=== PATIENT | female | born 1960 | race Caucasian/White ===

== ENCOUNTER 2019-04-13 06:25 | Inpatient (IN) | payer MEDICARE, MEDICAID ==
[~2019-04-13] VITALS: Ht 160 cm; Wt 63.5 kg
--- NOTE | ~2019-04-13 | WRIGHTHP ---
[place], [place] PATIENT HISTORY AND PHYSICAL EXAM NAME: CAN HERNANDEZ UNIT #: [id number] ROOM: 312 DOCTOR: SHARAN ARROYO MD BIRTHDATE: [birth year] DOS: 04/14/2019 INITIAL PSYCHIATRIC EVALUATION CHIEF COMPLAINT: "I have just been so depressed and having panic attacks." HISTORY OF PRESENT ILLNESS: This is a 58-year-old female who resides at [facility] in [place], [place]. The patient reports that she had gone to jainism on the morning of admission and stated that a man kept looking at her, making her very uncomfortable having then experienced a panic attack from it. The panic attack was the thing that sat her over the edge and she stated that prior to this, she had been feeling increasingly depressed and despondent for many, many years. She reports multiple neurovegetative symptoms including poor sleep and appetite, anergia, anhedonia, hopeless, helpless feelings, crying spells, and inability to cope. Additionally, the patient suffers from multiple sclerosis and states that she has had a significant cognitive decline since the diagnosis was made. She is very forgetful and requires a great deal of assistance and support. She is admitted now to rule out any organic factors to attempt to stabilize on medication, to engage in individual and high milieu activity and to return to the least restrictive environment to which she can go to. PAST MEDICAL HISTORY: Remarkable for previous history of alcohol abuse, GERD, marijuana abuse, hypertension, multiple sclerosis, and overactive bladder. SOCIAL HISTORY: The patient does not currently smoke nor does she use illicit drugs currently, nor does she drink alcohol, but she has a history of both marijuana abuse and alcohol abuse. STRENGTHS: Ambulatory, good verbal skills. WEAKNESSES: Cognitive decline, poor coping skills. MENTAL STATUS: She is alert and oriented to person, place, but not time. Mood does seem to be overwhelmingly depressed and despondent with anxious overtones. She endorses multiple neurovegetative symptoms as well as suicidal thoughts and a plan. There is no hypomania or nilton. There are no gross psychotic symptoms. No auditory or visual hallucinations. No delusions. Memory, especially for short-term events is poor. DIAGNOSES: Major depression, recurrent, severe, and panic disorder as well as dementia secondary to multiple sclerosis. PLAN: I will discontinue her Abilify as I do not see psychosis and while she may benefit in the future from Abilify, augmenting an antidepressant. I would rather start an antidepressant alone first to see if this is effective. Along those lines, I will start Trintellix 10 mg a day. Given her cognitive decline, I will also start her on Exelon patch 4.6 mg a day. Monitor and support, engage in individual and high milieu activity, returning to the least restrictive environment when psychiatrically stable. [place], [place] PATIENT HISTORY AND PHYSICAL EXAM NAME: CAN HERNANDEZ UNIT #: [id number] ROOM: 312 DOCTOR: SHARAN ARROYO MD BIRTHDATE: [birth year] SHARAN ARROYO MD CM:HISPHYS:PATIENT HISTORY AND PHYSICAL EXAMINATION 1 1 SHARAN ARROYO MD 04/14/19 09 interface
--- NOTE | ~2019-04-13 | PR ---
[place], [place] PROGRESS NOTE NAME: CAN HERNANDEZ UNIT #: [id number] ROOM: 312 DOCTOR: SHARAN ARROYO MD BIRTHDATE: [birth year] DOS: 04/16/2019 CHIEF COMPLAINT: "I am kind of itchy all around my collar." SUMMARY OF THE VISIT: The patient was interviewed as she was resting quietly in bed. She did report that she is feeling better mood islas and that she feels like the current medicines are working. She expressed concern though that they may be causing her to be itching. However, on further explanation, the itchiness is not fully systemic, but isolated to her head and to her neck area. I offered her a shot of Benadryl to which she agreed. MENTAL STATUS: She is alert and oriented. Mood does seem to be strongly trending towards euthymia. Affect is much more appropriate. There is no nilton, hypomania or psychosis. Memory does continue to have gaps. PLAN: I will order Benadryl 50 mg IM now to see if this impacts positively on her itching. I did tell her that if she should break out into hives to please notify the nursing staff immediately. I will also simultaneously increase the Trintellix from 10 mg daily to 20 mg daily to maximize potential benefits. Continue to engage in individual and high milieu activity, returning to the least restrictive environment when psychiatrically stable. SHARAN ARROYO MD CM:PNTRANS [id number] SHARAN ARROYO MD 04/16/19 1524 interface
--- NOTE | ~2019-04-13 | PR ---
[place], [place] PROGRESS NOTE NAME: CAN HERNANDEZ UNIT #: [id number] ROOM: 312 DOCTOR: SHARAN ARROYO MD BIRTHDATE: [birth year] DOS: 04/15/2019 INTERVAL NOTE CHIEF COMPLAINT: "I am hoping I get to go home soon." SUMMARY OF THE VISIT: The patient was interviewed as she was sitting in the quiet room. She stopped and engaged readily in conversation with me reporting that she is already beginning to feel better. She reported that she has not had a panic attack since she has been here in the hospital and her sleep and appetite have both normalized. She also reports that her mood is brighter and she is feeling better. She still notes that she is very forgetful and states that the cognitive decline has been progressive and she is very concerned about this. She also openly reports no side effects from the medicines themselves. MENTAL STATUS: She is alert and oriented to person, place and very approximate to time. Mood does seem to be strongly trending towards euthymia. Affect is much more appropriate. There is no hypomania or nilton. There are no gross psychotic symptoms. Short term memory does continue to have gaps, but long and intermediate are intact. PLAN: I will go ahead and increase the Exelon patch from 4.6 mg daily to 9.5 mg daily in an effort to maximize potential benefits in improving and maintaining ADLs, behavior and cognition. We will continue her other psychotropic regimen, continue to engage in individual and high milieu activity with the ultimate plan to return to the least restrictive environment when psychiatrically stable. SHARAN ARROYO MD CM:PNTRANS [id number] SHARAN ARROYO MD 04/15/19 1319 interface
--- NOTE | ~2019-04-13 | DS ---
[place], [place] DISCHARGE SUMMARY [facility]: [id number] UNIT #: [id number] ROOM: 312 DOCTOR: SHARAN ARROYO MD BIRTHDATE: [birth year] DOS: 04/18/2019 CHIEF COMPLAINT: "I have just been so depressed and I am having panic attacks." HISTORY OF PRESENT ILLNESS: This is a 58-year-old female who resides at [facility] in [place], [place]. The patient reports she had gone to methodist in the morning of the day of admission and stated that a man kept looking at her making her very uncomfortable, at which time she began a full blown panic attack. The panic attacks sent her over the edge stating that she cannot continue living like this and she was deeply depressed and had suicidal thoughts with a plan to end her life. She also endorses multiple neurovegetative symptoms including poor sleep and appetite, anergia, anhedonia, hopeless, helpless feelings and inability to cope. The patient suffers from multiple sclerosis and has noted also significant cognitive decline and does require supervision in order to take her medications and eat her meals. Because of the decompensation, it was felt that an inpatient stabilization was warranted. SUMMARY OF HOSPITAL COURSE: The patient was admitted to the unit where she was started on Trintellix as a newer antidepressant that would impact positively on cognition as well as decrease anxiety and combat depression. Trintellix was started at 10 mg a day. Her Abilify was discontinued as I was hoping to do monotherapy first, she started on Exelon patch 4.6 mg a day to help improve or maintain ADLs, behavior and cognition. Over the course of her stay, the Exelon was titrated upwards to its maximum dose of 13.3 mg a day with good results. With the Trintellix being increased to 20 mg a day, the patient had a significant alleviation of symptomatology. Sleep and appetite normalized. She was able to attend her ADLs better. Her mood improved. Her concentration improved. Her panic attacks dissipated. She voiced positive plans for the future and was ready to go back to [facility]. MENTAL STATUS AT DISCHARGE: The patient is alert and oriented to person, place and very approximate to time. Mood does seem to be euthymic. Affect appropriate. Speech rate and pattern is within normal limits. There is no nilton, hypomania or psychosis. She at times process slowly, but for the most part has improved. Memory for short term events does have gaps. FINAL DIAGNOSES: Major depression, recurrent, severe panic disorder, dementia secondary to multiple sclerosis. DISPOSITION: The patient is returning to [facility] in [place], [place]. At the time of discharge, she was medically and psychiatrically stable. All of her prescriptions have been printed, signed and will be sent with her and I will be her treating psychiatrist of record upon her readmission to [facility]. [place], [place] DISCHARGE SUMMARY NAME: CAN HERNANDEZ UNIT #: [id number] ROOM: 312 DOCTOR: SHARAN ARROYO MD BIRTHDATE: [birth year] SHARAN ARROYO MD CM:DANIKA 1 0 SHARAN ARROYO MD 04/18/19919 interface
--- NOTE | ~2019-04-13 | PR ---
[place], [place] PROGRESS NOTE NAME: CAN HERNANDEZ UNIT #: [id number] ROOM: 312 DOCTOR: SHARAN ARROYO MD BIRTHDATE: [birth year] DOS: 04/17/2019 CHIEF COMPLAINT: "Oh, thank you for taking care of me. I feel so much better." SUMMARY OF THE VISIT: The patient was interviewed as she was resting quietly in her bed. She thanked me for taking care of her and reports that she is feeling so much better. When I discussed with her the possibility of leaving tomorrow, she also thanked me for arranging for her ride and stated that she was ready for discharge. MENTAL STATUS: She is alert and oriented with time gaps. Mood does seem to be trending towards euthymia. Affect is much more appropriate. There is no nilton, hypomania or psychosis noted. Short -term memory has gaps. PLAN: I will go ahead and increase her Exelon patch to 13.3 mg daily starting on 04/18/2019. Continue to engage in individual and high milieu activity, returning then to the least restrictive environment when psychiatrically stable. SHARAN ARROYO MD CM:PNTRANS [id number] SHARAN ARROYO MD 04/17/19 1328 interface
[2019-04-13] MEDS ORDERED: BACLOFEN5 MG PO (06:31)
[2019-04-13] MEDS ORDERED: VESICARE5 MG PO (06:32)
[2019-04-13] MEDS ORDERED: COL-RITE100 M1 PO (06:33)
[2019-04-13] MEDS ORDERED: PROTONIX40 MG PO (06:35)
[2019-04-13] MEDS ORDERED: ABILIFY5 MG PO (06:36)
--- NOTE | 2019-04-13 11:20 | NUR ---
MARYCAN a 58 year old F admitted via stretcher from the ADMITTING as a emergency 72 hr. hold admission. Arrived on unit at 1120. ALLERGIES: NKA. Vital signs are: [id number] 116/77. The client signed the following forms with stated understanding: Authorization For The Release of Medical Information, Clothing List, Consent to Voluntary Admission and Hospitalization, Consent and Release Forms/Receipt of Rights, Acknowledgement of Advance Directive Information, Behavioral Health Consent Form, and Informed Consent of Medications. Admitted under the services of Dr. DINA OLMOS,[facility]. A search was conducted and hazardous articles were removed. Client was oriented to the unit. SHARONA GAMEZ
[2019-04-13 11:31] VITALS: BP 116/77
[2019-04-13 11:33] VITALS: BP 116/77
--- NOTE | 2019-04-13 12:45 | NUR ---
psychosocial hx completed this date.
--- NOTE | 2019-04-13 13:09 | NUR ---
PATIENT COMPLAINING OF LOWER BACK PAIN, RATING 8/10 PAIN. PRN TYLENOL 650MG PO GIVEN AT THIS TIME.
--- NOTE | 2019-04-13 14:09 | NUR ---
NO FURTHER COMPLAINTS OF PAIN, PRN TYLENOL EFFECTIVE.
--- NOTE | 2019-04-13 15:47 | NUR ---
Shift chart check completed.
--- NOTE | 2019-04-13 16:01 | NUR ---
DA DIAS CNP NOTIFIED OF SUICIDE SCORE OF 30; CONTINUE Q 15 MINUTE SAFETY CHECK. PATIENT HAS NO PLAN TO HARM SELF.
--- NOTE | 2019-04-13 17:26 | NUR ---
PT COMPLAINT OF BACK PAIN REQUESTED TYLENOL, ADMINISTERED AT THIS TIMES
--- NOTE | 2019-04-13 18:31 | NUR ---
P: DELUSIONAL THOUGHTS VOICED- 15 YEARS AGO I MET JENIFER DIAS AND MOVED TO [place], STAYED WITH JENIFER DIAS FOR 2 MONTHS; WHILE HE WAS FROM HIS . I WISH I WAS , I DON'T HAVE HIM IN MY LIFE ANYMORE. PATIENT DENIES HAVING SUCIDAL IDEATIONS TO HARM SELF. I: ONE ON ONE TO PROVIDE EMOTIONAL SUPPORT, REORIENT TO REALITY. R: ONE ON ONE EFFECTIVE; PATIENT IS ALERT TO PERSON AND TIME WITH CONFUSION; LONG/SHORT TERM MEMORY DEFICITS. MOOD IS DEPRESSED AND ANXIOUS. DENIES ANY HALLUCINATIONS, DELUSIONS, HI/SI. MEDICATION WITH TYLENOL FOR BACK PAIN AND EFFECTIVE. RESPONDING TO INTERNAL STIMULI-DELUSIONAL THOUGHTS VOICED. MEDICATION COMPLIANT WITH EDUCATION PROVIDED. Q 15 MINUTE SAFETY CHECKS MAINTAINED. 1 PERSON ASSIST NEEDED FOR ACTIVITIES OF DAILY LIVING, CONTINENT OF BOWEL AND BLADDER; OCCASIONAL INCONTINENCE OF BLADDER. INTERACTIVE WITH STAFF AND OTHER PATIENTS. AMBULATORY WITH STEADY GAIT USING WHEELED WALKER. CONTINUING TO MONITOR MEAL INTAKES. P: CONTINUE TO MONITOR FOR MOOD AND DELUSIONS; PROVIDE ONE ON ONE FOR EMOTIONAL SUPPORT AND REORIENTATION TO REALITY NEEDED.
[2019-04-13 20:25] VITALS: BP 116/63
--- NOTE | 2019-04-14 00:39 | NUR ---
P-DEPRESSED MOOD I- ASSESS ORIENTATION, MOOD, AND BEHAVIOR. ASSESS FOR SI/HI, HALLUCINATIONS, AND DELUSIONS. PROVIDE 1:1 WITH THERAPEUTIC INTERVENTIONS. PROVIDE SUPPORT. MONITOR SLEEP. R-PATIENT ALERT AND ORIENTED X2 WITH CONFUSION. PT CALM, ISOLATIVE TO SELF. AMBULATORY THROUGHOUT UNIT, GAIT STEADY. PT GUARDED DURING 1:1, STATED SHE FELT DEPRESSED BUT WOULD NOT ELABORATE STATING "ITS BEEN A LONG DAY". PT DENIES SI/HI AND HALLUCINATIONS, NO NOTED RESPONDING TO INTERNAL STIMULI. NO PARANOIA/DELUSIONS NOTED. PT ABLE TO MAKE NEEDS KNOWN, X1 ASSIST WITH ADLS, CONTINENT OF BOWEL AND BLADDER. PT RESTING QUIETLY AT THIS TIME. NO SIGNS OR SYMPTOMS OF DISTRESS NOTED. P-CONTINUE TO MONITOR MOODS AND BEHAVIORS. PROVIDE 1:1 WITH REORIENTATION NEEDED. PROVIDE SUPPORT. ENCOURAGE MEDICATION COMPLIANCE AND EDUCATE. MAINTAIN Q 15 MIN CHECKS.
--- NOTE | 2019-04-14 06:00 | NUR ---
PATIENT OBSERVED ON Q 15 MIN CHECKS TO HAVE SLEPT APPROX 7 HOURS THROUGHOUT THE SHIFT WITH NO AWAKENINGS OR SIGNS AND SYMPTOMS OF DISTRESS NOTED.
[2019-04-14 07:46] VITALS: BP 110/61
[2019-04-14 07:58] LABS: ALBUMIN 3.1 gm/dl (3.1-4.5); ALKALINE PHOSPHATASE 55 U/L (45-117); BUN 8 mg/dl (7-24); CHLORIDE 107 mmol/L (98-107); CHOLESTEROL 192 mg/dL (<200); CREATININE 0.64 mg/dL (0.55-1.02); HDL CHOLESTEROL 50 mg/dl (40-60); LDL CHOLESTEROL 119 mg/dL (9-159); POTASSIUM 4.1 mmol/L (3.5-5.1); SGOT/AST 10 IU/L (3-35); SGPT/ALT 16 U/L (12-78); SODIUM 142 mmol/L (136-145); TOTAL PROTEIN 6.6 gm/dL (6.4-8.2); TRIGLYCERIDES 117 mg/dl (<150); VLDL CHOLESTEROL 23 mg/dL (6-40)
--- NOTE | 2019-04-14 08:12 | NUR ---
Occupational therapy orders received and nursing screen. Will follow up with patient for completion of OT eval. Thank you. Odalis Lyles, OTR/L
--- NOTE | 2019-04-14 10:28 | NUR ---
Spoke with Van, district court administrator of [facility], who confirmed that pt is to return there. Requested that the guardianship papers for pt be faxed to [facility].
--- NOTE | 2019-04-14 10:30 | NUR ---
Treatment plan meeting held with Dr Jessica, RN, DAIRY FARM SUPERVISOR-S, and coordinator of placement. Discharge date undetermined at this time. Will return to [facility] upon discharge.
--- NOTE | 2019-04-14 11:13 | NUR ---
Clinical update faxed to [facility].
--- NOTE | 2019-04-14 11:44 | NUR ---
AM GROUP PT DID NOT ATTEND MORNING GROUP THEARPY UNTIL ONLY 10 MINUTES WERE LEFT. PT STATED, "I WAS IN BED CAUSE MY BACK IS HURTING ME" PT REQUESTED TO LISTEN TO COUNTRY MUSIC AND SAT QUIETLY AND LISTENED FOR THE REMAINDER OF GROUP. PT EXHIBITED NO SIGNS OF ANXIETY WHILE IN THE GROUP ROOM
--- NOTE | 2019-04-14 14:14 | NUR ---
PHYSICAL THERAPY Pt participating in activities. Will attempt later. Thank you Jenni Clinton, PT, DPT
--- NOTE | 2019-04-14 14:15 | NUR ---
Occupational therapy orders received and chart reviewed. Patient was in group upon OT arrival. Will follow up with patient for completion of OT evaluation. Thank you. Odalis Lyles, OTR/L
--- NOTE | 2019-04-14 15:47 | NUR ---
PM GROUP PT ATTENDED AND PARTICIPATED IN AFTERNOON GROUP THERAPY BY COLORING AND LISTENING TO MUSIC. PT WAS QUIET AND ON TASK. PT EXHIBITED NO SIGNS OF ANXIETY WHILE IN GROUP.
[2019-04-14 20:00] VITALS: BP 128/79
--- NOTE | 2019-04-14 20:32 | NUR ---
EVENING/RELAXTION/MUSIC/STORY PT ATTENDED AND PARTICIPATED IN GROUP BY GETTING NAILS DONE AND DOING A WORDSEARCH. PT PLEASANT AND ON TASK WITH NO ANXIETY, OR DELUSIONS EXPRESSED AT THIS TIME. PT WILL CONTINUE TO ATTEND AN DPARTICIPATE IN FUTURE GROUP SESSIONS.
--- NOTE | 2019-04-15 02:44 | NUR ---
APPEARS WITH SAD FACE BUT VERY INTERACTIVE WITH STAFF AND PEERS. WALKING AROUND WITH WALKER. DURING MED PASS SHE WAS TALKING QUIETLY AND WHEN ASKED WHO SHE WAS TALKING TO SHE DENIED TALKING TO OTHERS STATES SHE JUST TALKS TO HERSELF. DENIES ANY NEED FOR 1:1 AT THIS TIME
[2019-04-15 08:09] VITALS: BP 123/59
--- NOTE | 2019-04-15 10:16 | NUR ---
Left a voicemail message for pt's guardian Jeannie Baugh requesting that guardianship papers be faxed to [facility] and also that Jeannie contact [facility].
--- NOTE | 2019-04-15 11:44 | NUR ---
AM GROUP PT ATTENDED MORNING GROUP THERAPY AND PARTICIPATED BY DOING A WORDSEARCH AND LISTENING TO MUSIC. PT WAS NOTED TO BE TALKING UNDER HER BREATH AT TIMES. PT WAS QUIET AND ON TASK. PT EXPRESSED NO DELUSIONS OR ANXIOUS THOUGHTS WHILE IN GROUP.
--- NOTE | 2019-04-15 12:38 | NUR ---
NILE CA TYPEWRITER TESTER ON UNIT TO ASSESS PT, UPDATE PROVIDED.
--- NOTE | 2019-04-15 15:57 | NUR ---
PM GROUP PT WAS PRESENT FOR AFTERNOON GROUP THERAPY AND PARTICIPATED BY DOING A WORDSEARCH AND LISTENING TO MUSIC. PT EXPRESSED NO DELUSIONAL IDEATIONS WHILE IN GROUP
[2019-04-15 20:00] VITALS: BP 123/78
--- NOTE | 2019-04-15 23:36 | NUR ---
24 HR chart check completed.
[2019-04-16 07:50] VITALS: BP 120/80
--- NOTE | 2019-04-16 08:30 | NUR ---
Treatment Plan meeting with Dr. Jessica, RN, AT, SW and Supervisor Unloading. Plan for discharge /Sunday. Pt. will return to [facility] at discharge.
--- NOTE | 2019-04-16 10:57 | NUR ---
NO ADVERSE MOODS OR BEHAVIORS NOTED AT THIS TIME. PT ALERT TO PERSON, PLACE AND TIME. PT MED COMPLIANT WITHOUT DIFFICULTY, MED EDUCATION PROVIDED. PT CALM, MOOD IS STABLE. PT INTERACTIVE WITH STAFF AND PEERS. NO HALLUCINATIONS OR DELUSIONS NOTED. PT DENIES ANY SUICIDAL THOUGHTS. PT AMBULATORY THROUGHOUT UNIT, GAIT STEADY. PT CONTINENT OF BOWEL AND BLADDER, EPISODES OF INCONTINENCE NOTED, CARE PROVIDED NEEDED. PLAN IS TO MONITOR PT BEHAVIORS ON Q15 MIN SAFETY CHECKS, ENCOURAGE MED COMPLIANCE AND PROVIDE MED EDUCATION, PROVIDE EMOTIONAL SUPPORT AND 1:1 FOR PT TO VOICE FEELINGS.
--- NOTE | 2019-04-16 11:24 | NUR ---
Occupational therapy orders received and OT evaluation completed in full on floor three. Patient precautions include fall risk and ww use. Patient was independent with ADLs and functional mobility/transfers. Patient orders to be discharged at this time. Patient was notified of OT discharge, patient was agreeable and had no further questions. [place], [id number]. Thank you. Odalis Lyles, OTR/L
--- NOTE | 2019-04-16 11:54 | NUR ---
AM GROUP/MUSIC AND LIGHT THERAPY PT DID NOT ATTEND MORNING GROUP THERAPY. PT WAS IN BED RESTING
--- NOTE | 2019-04-16 15:41 | NUR ---
PM GROUP PT WAS PRESENT AT THE START OF AFTERNOON GROUP AND WORKED ON A WORDSEARCH FOR A FEW MINUTES. PT GOT UP AND LEFT THE DAYROOM AND DID NOT RETURN.
--- NOTE | 2019-04-16 16:23 | NUR ---
Shift chart check completed.
[2019-04-16 19:57] VITALS: BP 119/74
--- NOTE | 2019-04-16 21:25 | NUR ---
Patient alert and oriented x 3. Patient isolative to room. Patient ambulated in hallway with walker and steady gait befor going to her room. Patient denies any hallucinations. No signs of patient responding to internal stimuli. Patient compliant with medications without any difficulty. Provided 1:1 for emotional support. Plan to continue to encourage medication compliance and continue to provide emotional support. Also continue to encourage more interaction with staff and in groups. Q 15 minute safety checks continued and maintained. See [facility] flowsheet for further documentation.
--- NOTE | 2019-04-17 02:55 | NUR ---
24 HR chart check completed.
--- NOTE | 2019-04-17 05:05 | NUR ---
Patient slept approx. 8 hours throughout shift. Q 15 minute safety checks continued and maintained.
[2019-04-17 08:00] VITALS: BP 110/66
--- NOTE | 2019-04-17 09:00 | NUR ---
Discharge Plan remains unchanged at this time. Pt. will discharge Sunday with Return to [facility].
--- NOTE | 2019-04-17 09:55 | NUR ---
PHYSICAL THERAPY Physical therapy screen completed. Pt is independent using a FWW. Pt performs self care activities independently. no PT needs at this time. Thank you Jenni Clinton, PT, DPT
--- NOTE | 2019-04-17 11:40 | NUR ---
AM GROUP PT DID NOT ATTEND MORNING GROUP THERAPY. PT WAS IN BED RESTING
--- NOTE | 2019-04-17 13:20 | NUR ---
Shift chart check completed.
--- NOTE | 2019-04-17 13:21 | NUR ---
P- ISOLATIVE TO ROOM. ST/LT MEMORY DEFICITS NOTED. I- ASSESS MOOD, ORIENTATION, SI/HI, HALLUCINATIONS, DELUSIONS OR PAIN. PROVIDE MEDICATIONS ON TIME WITH EDUCATION ON EACH MED. 1:1 THERAPEUTIC INTERACTION WITH EMOTIONAL SUPPORT AND VENTILATION OF FEELINGS PROVIDED. REORIENT WHEN CONFUSION IS NOTED. ENCOURAGE TO ATTEND/PARTICIPATE IN GROUP THERAPY FOR EMOTIONAL SUPPORT AND SOCIALIZATION. ENCOURAGE INTERACTION WITH PEERS AND STAFF. R- ALERT AND ORIENTED X3. ST MEMORY DEFICITS NOTED AT TIMES, REORIENTATION EFFECTIVE. PT STATES THAT SHE HAS NOTICED A CHANGE IN HER MEMORY RECENTLY. MOOD PLEASANT. DENIES SI/HI, HALLUCINATIONS OR PAIN. NO S/S OF INTERACTING WITH INTERNAL STIMULI. NO DELUSIONAL THOUGHT PROCESS NOTED. NO S/S OF DISTRESS NOTED. RESPS EVEN AND UNLABORED ON ROOM AIR. 1:1 INTERACATION SLIGHTLY EFFECTIVE. PT COMES OUT OF ROOM INTERMITTENTLY THROUGHOUT THE DAY AND FOR MEALS. PT STATES THAT SHE JUST PREFERS TO STAY IN HER ROOM. PT INTERACTIVE WITH STAFF WHEN SPOKEN WITH FIRST. GAIT STEADY WHILE UTILIZING WALKER. MAKES NEEDS KNOWN. MEDICATION COMPLIANT. EATING AND DRINKING ADEQUATELY. P- ASSESS MOOD, ORIENTATION, SI/HI, HALLUCINATIONS, DELUSIONS OR PAIN EVERY SHIFT. PROVIDE MEDICATIONS ON TIME WITH EDUCATION ON EACH. 1:1 INTERACTION PROVIDED WHEN NECESSARY. ENCOURAGE TO ATTEND/PARTICIPATE IN GROUP THERAPIES FOR EMOTIONAL SUPPORT AND SOCIALIZATION. ENCOURAGE INTERACTION WITH PEERS AND STAFF. REORIENT WHEN CONFUSION IS NOTED. Q15 MINUTE CHECKS MAINTAINED FOR SAFETY.
--- NOTE | 2019-04-17 13:30 | NUR ---
Late Entry: [place] that pt's guardian had changed to Vianey Fields ([phone]). [facility] was to be faxing guardianship document. Phoned to speak to Vianey Fields and was informed that she is off of work due to surgery but that Eduardo Whelan was covering for Vianey. Spoke to Eduardo who gave verbal permission for voluntary admission of pt. Eduardo also notified Vianey Fields of pt's admission.
--- NOTE | 2019-04-17 14:45 | NUR ---
Spoke with pt's guardian Vianey Diamond. Provided update and discussed follow-up for patient. The plan is that [facility]. Vianey's contact info is: cell [phone], mailing address is [address] [place] [address], [place] [address].
--- NOTE | 2019-04-17 15:39 | NUR ---
PM GROUP PT DID NOT ATTEND AFTERNOON GROUP THERAPY. PT CHOSE TO STAY IN HER ROOM AND REST
--- NOTE | 2019-04-17 15:47 | NUR ---
Transportation arranged with [facility] to Transport with Electric Installer time 1:00 p.m. Nursing Staff on the U Notified and Left On Communication Board.
[2019-04-17 20:27] VITALS: BP 112/60
--- NOTE | 2019-04-17 22:00 | NUR ---
P-ISOLATIVE I-REDIRECTION WITH 1:1 THERAPEUTIC INTERVENTIONS. EDUCATE AND ENCOURAGE MEDICATION COMPLIANCE R-PATIENT MEDICATION COMPLIANT. PATIENT AMBULATING ON UNIT WITH WHEELED WALKER AND WITH STEADY GAIT. PATIENT GARBLED AND NONSENSICAL SPEECH AT TIMES. PATIENT COOPERATIVE WITH NURSING STAFF. NOURISMENT AND FLUIDS PROVIDED AT HS P-CONTINUE TO ENCOURAGE MEDICATION COMPLIANCE, ENCOURAGE GROUP THERAPY WHILE AWAKE
--- NOTE | 2019-04-18 05:48 | NUR ---
PATIENT SLEPT 8 HOURS OF UNINTERRUPTED SLEEP THROUGHOUT SHIFT. Q 15 MINUTE CHECKS MAINTAINED. 24 HR chart check completed.
[2019-04-18 08:00] VITALS: BP 126/74
--- NOTE | 2019-04-18 08:25 | NUR ---
NILE CA CONVENTIONAL UNDERWRITER NOTIFIED OF DISCHARGE TODAY.
--- NOTE | 2019-04-18 08:30 | NUR ---
Patient resting quietly with no c/o discomfort. Respirations easy and regular. Vital signs stable. No overt distress. TEODORA SOTO
--- NOTE | 2019-04-18 08:30 | NUR ---
Treatment Plan meeting with Dr. Jessica, RN, AT, SW and Oyster Bed Worker. Plan for discharge today. Pt. will return to [facility].
[2019-04-18] MEDS ORDERED: BRIN20TA PO (09:06)
[2019-04-18] MEDS ORDERED: EXELON13.3 MG/21 T (09:06)
--- NOTE | 2019-04-18 11:41 | NUR ---
[facility] GROUP PT DID NOT ATTEND MORNING GROUP THERAPY. PT IS READYING TO BE DISCHARGED FROMT HE UNIT TODAY
--- NOTE | 2019-04-18 12:28 | NUR ---
Patient discharging today returning to [facility]. Follow-up will be with Dr Michael Jessica, visiting psychiatrist. Medical follow-up will be with visiting physician Dr Aguilar. While at [facility], pt's anxiety subsided. Pt was pleasant and cooperative. Pt had a tendency to isolate but would attend some programming. Pt's guardian Vianey Alysh aware of pt's discharge.
--- NOTE | 2019-04-18 12:39 | NUR ---
Discharge Paperwork Faxed to [facility]
--- NOTE | 2019-04-18 12:50 | NUR ---
NURSE TO NURSE REPORT GIVEN TO "FRANKY" AT [facility]. "FRANKY" ASKED FOR DISCHARGE PACKET TO BE FAXED TO FACILITY. FAXED AT THIS TIME. [facility] ON UNIT TO TRANSPORT PT VIA AMBULANCE, TWO ATTENDANTS PRESENT. PT TRANSFERRED TO STRETCHER AND ESCORTED OFF UNIT AT THIS TIME, ESCORTED BY TWO ATTENDANTS AND SECURITY. ALL BELONGINGS AND PAPERWORK FOR FACILITY SENT WITH AMBULANCE AT THIS TIME. [facility] ATTENDANT HAS POSSESSION OF KEYS, SIGNED LOCKBOX SHEET STATING MUCH.
== END 2019-04-18 12:50 | disposition home or self-care (01) | DRG 885 ==
LOC: EDBD → 3N 06:25
PROVIDERS: ADMIT Psychiatry & Neurology Psychiatry
DX: F33.2 Major depressive disorder, recurrent severe without psychotic features (principal); R45.851 Suicidal ideations; F41.0 Panic disorder [episodic paroxysmal anxiety]; I10 Essential (primary) hypertension; G35 Multiple sclerosis; F03.90 Unspecified dementia, unspecified severity, without behavioral disturbance, psychotic disturbance, mood disturbance, and anxiety; K21.9 Gastro-esophageal reflux disease without esophagitis; N32.81 Overactive bladder; M54.9 Dorsalgia, unspecified; F41.9 Anxiety disorder, unspecified; Z95.0 Presence of cardiac pacemaker